=== PATIENT | female | born 1995 | race Two or more races ===

== ENCOUNTER → 2019-05-07 | Outpatient (CLI) | payer OTHER, BC ==
[~2019-05-07] MED LIST: OMNIPAQUE 350 MG/ML, 100ML BOTTLE ONE
== END | disposition home or self-care (01) ==
LOC: RAD 14:08
PROVIDERS: ATTEND Family Medicine
DX: R59.9 Enlarged lymph nodes, unspecified (principal)
CPT/HCPCS: 74177; Q9967